=== PATIENT | male | born 1990 ===

== ENCOUNTER 2018-07-15 19:37 | Emergency (ER) | payer SELFPAY ==
[2018-07-15 19:57] VITALS: RESP 18
--- NOTE | 2018-07-15 21:54 | ED PDOC ---
HPI: General Adult Time Seen by Provider: 07/15/18 21:51 Chief Complaint (Nursing): Abdominal Pain Chief Complaint (Provider): right flank pain/right testicular pain History Per: Patient (28 y/o male here with right flank pain radiating to abdomen and testicle x 1 month. Concerned for kidney stone. Notes additional abnormality right testicular region. Denies any fevers or chills. NO vomiting. ) Past Medical History Reviewed: Historical Data, Nursing Documentation, Vital Signs Vital Signs: Last Vital Signs Temp 98.3 F 07/15/18 19:54 Pulse 76 07/15/18 19:54 Resp 18 07/15/18 19:54 BP 119/62 07/15/18 19:54 Pulse Ox 99 07/15/18 19:54 - Family History Family History: States: No Known Family Hx - Immunization History Hx Tetanus Toxoid Vaccination: No Hx Influenza Vaccination: No Hx Pneumococcal Vaccination: No - Home Medications Home Medications: Ambulatory Orders Medication Instructions Recorded Ibuprofen [Motrin] 600 mg PO Q8 PRN #21 tab 07/16/18 - Allergies Allergies/Adverse Reactions: Allergies Allergy/AdvReac Type Severity Reaction Status Date / Time No Known Allergies Allergy Verified 07/15/18 19:54 Review of Systems ROS Statement: Except As Marked, All Systems Reviewed And Found Negative Physical Exam - Reviewed Nursing Documentation Reviewed: Yes Vital Signs Reviewed: Yes - Physical Exam Appears: Positive for: Well, Non-toxic, No Acute Distress Head Exam: Positive for: ATRAUMATIC, NORMAL INSPECTION, NORMOCEPHALIC Skin: Positive for: Normal Color, Warm, DRY Eye Exam: Positive for: EOMI, Normal appearance, PERRL ENT: Positive for: Normal ENT Inspection Neck: Positive for: Normal, Painless ROM Cardiovascular/Chest: Positive for: Regular Rate, Rhythm Respiratory: Positive for: CNT, Normal Breath Sounds Gastrointestinal/Abdominal: Positive for: Normal Exam, Soft, Tenderness (right flank tenderness) Male Genital Exam: Positive for: scrotum tenderness (R) Back: Positive for: Normal Inspection, R CVA Tenderness Extremity: Positive for: Normal ROM Neurologic/Psych: Positive for: Alert, Oriented - Laboratory Results Result Diagrams: 07/15/18 22:11 07/15/18 22:11 - ECG O2 Sat by Pulse Oximetry: 99 - Progress ED Course And Treament: CT ABD/PELVIS: MILD CONSTIPATION SCROTAL US: (+) HYDROCELE; EPIDYDMAL CYST Disposition - Clinical Impression Clinical Impression: Epididymal cyst, Back strain, Hydrocele - Patient ED Disposition Is Patient to be Admitted: No - Disposition Referrals: Ralph Juarez MD [Medical Doctor] - Damian Lawrence MD [Staff Provider] - [facility] [Outside] Disposition: Routine/Home Disposition Time: 23:59 Condition: FAIR Prescriptions: Ibuprofen [Motrin] 600 mg PO Q8 PRN #21 tab PRN Reason: Pain, Moderate (4-7) Instructions: Muscle Strain, Hydrocele, Epidermal Cyst (DC) Forms: [facility] ED School/Work Excuse Print Language: BULGARIAN
[2018-07-15 22:13] LABS: URINE BACTERIA FEW (<OCC); URINE BILIRUBIN NEGATIVE (NEGATIVE); URINE BLOOD NEGATIVE (NEGATIVE); URINE CLARITY CLEAR (Clear); URINE COLOR YELLOW (YELLOW); URINE GLUCOSE (UA) NEG (NEGATIVE); URINE LEUKOCYTE ESTERASE NEG Leu/uL (Negative); URINE PROTEIN NEGATIVE (NEGATIVE); URINE UROBILINOGEN 0.2-1.0 mg/dL (0.2-1.0)
[2018-07-15 22:18] LABS: BASO % 0.5 % (0.0-2.0); EOS # 0.1 K/uL (0.0-0.7); EOS % 1.9 % (0.0-4.0); HEMOGLOBIN 15.3 g/dL (12.0-18.0); LYMPH % 31.1 % (20.0-40.0); MEAN CELL VOLUME 86.6 fl (80.0-94.0); MEAN CORPUSCULAR HEMOGLOBIN 29.2 pg (27.0-31.0); MEAN CORPUSCULAR HGB CONC 33.8 g/dL (33.0-37.0); MEAN PLATELET VOLUME 9.8 fl (7.2-11.7); MONO # 0.5 K/uL (0.0-0.8); MONO % 8.2 % (0.0-10.0); NEUT # 3.7 K/uL (1.8-7.0); NEUT % 58.3 % (50.0-75.0); NRBC % 0.1 % (0.0-0.0); RBC 5.25 Mil/uL (4.40-5.90); RED CELL DISTRIBUTION WIDTH 13.3 % (11.5-14.5); WHITE BLOOD COUNT 6.3 K/uL (4.8-10.8)
[2018-07-15 22:24] LABS: ALB/GLOB RATIO 1.4 (1.0-2.1); ALBUMIN 4.5 g/dL (3.5-5.0); ALT/SGPT 49 U/L (21-72); AST/SGOT 28 U/L (17-59); BLOOD UREA NITROGEN 15 mg/dl (9-20); CALCIUM 9.2 mg/dL (8.4-10.2); GFR NON-AFRICAN AMERICAN > 60; LIPASE 66 U/L (23-300)
[2018-07-16 00:18] VITALS: BP 106/75; PULSE 72; TEMP 98.2
[2018-07-16 00:30] VITALS: O2SAT 99
--- NOTE | 2018-07-16 11:21 | CT ---
PROCEDURE: CT Abdomen and Pelvis without Oral or IV contrast. HISTORY: right lower abdominal pain COMPARISON: None available. TECHNIQUE: Contiguous axial images of the abdomen and pelvis. No oral or IV contrast administered. Coronal and Sagittal reformats generated and reviewed. Radiation dose: Total exam DLP = 353.06 mGy-cm. This CT exam was performed using one or more of the following dose reduction techniques: Automated exposure control, adjustment of the mA and/or kV according to patient size, and/or use of iterative reconstruction technique. FINDINGS: There is limited evaluation of the solid organs without the administration of IV contrast. LOWER THORAX: No visible consolidation, pleural effusion, or pneumothorax. LIVER: 10 mm hypodense lesion within the posterior right hepatic lobe (series 3, image 53), indeterminate. GALLBLADDER AND BILE DUCTS: Unremarkable unenhanced appearance. PANCREAS: Unremarkable unenhanced appearance. SPLEEN: Unremarkable unenhanced appearance. ADRENALS: Unremarkable unenhanced appearance. KIDNEYS AND URETERS: No hydronephrosis or obstructing renal calculus. BLADDER: The urinary bladder appears unremarkable. REPRODUCTIVE: Unremarkable. APPENDIX: The appendix appears within normal limits of caliber. No secondary signs of acute appendicitis. BOWEL: The stomach is nondistended. Lack of oral contrast limits evaluation for bowel pathology. The bowel loops appear within normal limits of caliber without evidence of intestinal obstruction. Moderate diffuse constipation. PERITONEUM: No significant free fluid. No definite free air. LYMPH NODES: No bulky lymphadenopathy identified. VASCULATURE: No significant atherosclerotic calcifications. No aortic aneurysm. BONES: No acute osseous abnormality is detected. OTHER FINDINGS: None. IMPRESSION: 10 mm hypodense lesion within the posterior right hepatic lobe, indeterminate. Nonemergent outpatient cross-sectional imaging or ultrasound may be considered for further characterization if indicated. Moderate diffuse constipation. Preliminary impression was provided by [employer]. Study marked for PA review.
--- NOTE | 2018-07-16 11:36 | US ---
Date of service: 07/15/2018 HISTORY: right testicular pain TECHNIQUE: Realtime sonography through the scrotum with color and doppler flow. COMPARISON: None Available. FINDINGS: RIGHT TESTICLE: Measures 4.1 x 1.5 x 2.5 cm. Homogeneous echotexture. Blood flow is demonstrated. RIGHT EPIDIDYMIS: 0.2 x 0.1 x 0.2 cm cyst. LEFT TESTICLE: Measures 3.8 x 1.6 x 2.7 cm. Homogeneous echotexture. Blood flow is demonstrated. LEFT EPIDIDYMIS: 0.7 x 0.6 x 0.7 cm cyst. HYDROCELE: Small left-sided hydrocele. VARICOCELE: None. OTHER FINDINGS: None. IMPRESSION: Bilateral epididymal cysts. Small left-sided hydrocele. Preliminary impression was provided by [employer]
--- NOTE | 2018-07-16 17:34 | ED PDOC ---
ED Additional Note - Date & Time of Evaluation Date of Evaluation: 07/16/18 Time of Evaluation: 17:30 - Physician Additional Note Physician Additional Note: PA Performing Radiology call backs. IMPRESSION: 10 mm hypodense lesion within the posterior right hepatic lobe, indeterminate. Nonemergent outpatient cross-sectional imaging or ultrasound may be considered for further characterization if indicated. Moderate diffuse constipation. Preliminary impression was provided by [facility]. Study marked for PA review. Attempt made to reach patient, no answer and no alternate phone number provided. Second attempt to be made.
== END 2018-07-16 00:17 | disposition home or self-care (01) ==
LOC: H.ER 19:37
DX: N50.3 Cyst of epididymis (principal); S39.012A Strain of muscle, fascia and tendon of lower back, initial encounter; N43.3 Hydrocele, unspecified